=== PATIENT | female | born 1965 | race Caucasian/White ===

== ENCOUNTER → 2020-04-16 | Outpatient (CLI) | payer OTHER | LOC: RAD 16:09 | DX: M25.512 Pain in left shoulder (principal) ==

== ENCOUNTER → 2020-05-02 | Outpatient (CLI) | payer OTHER | LOC: BC 09:53 | DX: Z12.31 Encounter for screening mammogram for malignant neoplasm of breast (principal) ==

== ENCOUNTER → 2020-05-11 | Outpatient (CLI) | payer OTHER | LOC: RAD 09:15 | PROVIDERS: ATTEND Radiology Diagnostic Radiology | DX: N63.10 Unspecified lump in the right breast, unspecified quadrant (principal) ==

== ENCOUNTER → 2021-10-01 | Outpatient (CLI) | payer BC | LOC: BC 13:17 | PROVIDERS: ATTEND Family Medicine | DX: Z12.31 Encounter for screening mammogram for malignant neoplasm of breast (principal) ==